=== PATIENT | male | born 1970 | race Caucasian/White ===

== ENCOUNTER 2020-09-10 17:02 | Day surgery (SDC) | payer OTHER ==
[~2020-09-10 17:02] MED LIST: GLYCOPYRROLATE 1 MG/5 ML VIAL ONE; NEOSTIGMINE METHYLSULFATE 10 MG/10 ML VIAL ONE
[2020-09-10] MEDS ORDERED: NORMAL SALINE 1000 ML 1,000 ML IV ONE (17:33)
[2020-09-10] MEDS ORDERED: ONDANSETRON 4 MG TAB.RAPDIS PO ONE (17:33)
[2020-09-10] MEDS ORDERED: HYDROCODONE/ACETAMINOPHEN 5-325 MG TABLET PO ONE (17:33)
--- NOTE | 2020-09-10 17:42 | ER Document Report ---
ED Medical Screen (RME) - General Stated Complaint: ABDOMINAL PAIN Time Seen by Provider: 09/10/20 17:23 Primary Care Provider: DAYNA HOLCOMB [Primary Care Provider] - Follow up as needed - [facility] Notes: 09/10/20 17:36 49 yr old male presents today with complaints of RLQ abd pain since 1am this morning. was seen by his pcp this afternoon, advised to go to ER for further evaluation of possible appendicitis. reports nausea that occurs intermittently. denies any v/d. reports he has two normal bowel movements. reports he noticed an epigastric lump around 4-5 days ago. reports lump is painless. tried ibu this afternoon without relief. denies any cp, sob. no fevers or chills. I have greeted and performed a rapid initial assessment of this patient. A comprehensive ED assessment and evaluation of the patient, analysis of test r esults and completion of the medical decision making process will be conducted by additional ED providers. PHYSICAL EXAMINATION: GENERAL: Well-appearing, well-nourished and in no acute distress. CV: s1, s2 regular LUNGS: No respiratory distress abd: RLQ abd tenderness on palpation. Doctor's Discharge - Discharge Referrals: DAYNA HOLCOMB [Primary Care Provider] - Follow up as needed
[2020-09-10 18:22] LABS: ABSOLUTE BASOPHILS # (AUTO) 0.1 10^3/uL (0.0-0.2); ABSOLUTE EOSINOPHILS # (AUTO) 0.1 10^3/uL (0.0-0.6); ABSOLUTE MONOCYTES (AUTO) 0.8 10^3/uL (0.1-1.4); APPEARANCE,URINE CLEAR; BASOPHILS % (AUTO) 0.5 % (0-2); BILIRUBIN,URINE NEGATIVE (NEGATIVE); COLOR,URINE YELLOW; EOSINOPHILS % (AUTO) 0.8 % (0-6); GLUCOSE, URINE NEGATIVE (NEGATIVE); HEMATOCRIT 46.1 % (37.9-51.0); HEMOGLOBIN 15.8 g/dL (13.5-17.0); KETONES,URINE TRACE mg/dL (NEGATIVE); LEUKOCYTE ESTERASE,URINE NEGATIVE (NEGATIVE); MEAN CORPUSCULAR HEMOGLOBIN 32.4 pg (27.0-33.4); MEAN CORPUSCULAR HGB CONC 34.3 g/dL (32.0-36.0); MEAN CORPUSCULAR VOLUME 95 fl (80-97); NITRITE,URINE NEGATIVE (NEGATIVE); PLATELET COUNT 219 10^3/uL (150-450); PROTEIN,URINE NEGATIVE (NEGATIVE); RED BLOOD COUNT 4.88 10^6/uL (4.35-5.55); RED CELL DISTRIBUTION WIDTH 12.9 % (11.5-14.0); SEGMENTED NEUTROPHILS % (AUTO) 70.7 % (42-78); TOTAL CELLS COUNTED % (AUTO) 100 %; URINE SPECIFIC GRAVITY 1.025; UROBILINOGEN,URINE NEGATIVE mg/dL (<2.0); WHITE BLOOD COUNT 9.9 10^3/uL (4.0-10.5)
[2020-09-10 18:35] LABS: ALBUMIN 4.3 g/dL (3.5-5.0); ALKALINE PHOSPHATASE 63 U/L (38-126); ANION GAP 11 (5-19); ASPARTATE AMINO TRANSFERASE 24 U/L (17-59); BILIRUBIN,TOTAL 0.9 mg/dL (0.2-1.3); BLOOD UREA NITROGEN 13 mg/dL (7-20); CALCIUM 9.7 mg/dL (8.4-10.2); CARBON DIOXIDE 28 mmol/L (22-30); CHLORIDE 100 mmol/L (98-107); GLUCOSE 129 mg/dL (75-110); POTASSIUM 3.8 mmol/L (3.6-5.0); TOTAL PROTEIN 7.2 g/dL (6.3-8.2)
[2020-09-10] MEDS ORDERED: MORPHINE SULFATE 10 MG/ML INJ IV ONE (19:01)
[2020-09-10] MEDS ORDERED: ONDANSETRON HCL INJ/PF 4 MG/2 ML SDV IV ONE (19:01)
--- NOTE | 2020-09-10 19:48 | ER Document Report ---
ED GI/ - General Chief Complaint: Abdominal Pain Stated Complaint: ABDOMINAL PAIN Time Seen by Provider: 09/10/20 17:23 Mode of Arrival: Ambulatory Information source: Patient Notes: 49-year-old male no previous medical problems presents to the emergency room complaining of sharp or crampy pain that started around his umbilicus around 1 AM. Complains of nausea but denies any vomiting. States he took some ibuprofen with some relief. States he thought it was gas. Had 2 normal bowel movements that he states actually make the pain worse. Denies any trauma or injury. No urinary symptoms. No fevers. States that his primary care physician earlier today and was referred to the emergency room for possible appendicitis. TRAVEL OUTSIDE OF THE [place] IN LAST 30 DAYS: No - Related Data Allergies/Adverse Reactions: No Known Allergies Allergy (Unverified 09/10/20 19:22) Past Medical History - General Information source: Patient - Social History Smoking Status: Never Smoker Frequency of alcohol use: Occasional Drug Abuse: None Family History: Reviewed & Not Pertinent Patient has homicidal ideation: No Review of Systems - Review of Systems Constitutional: No symptoms reported EENT: No symptoms reported Cardiovascular: No symptoms reported Respiratory: No symptoms reported Gastrointestinal: Abdominal pain, Nausea. denies: Diarrhea, Vomiting, Constipation Genitourinary: No symptoms reported Male Genitourinary: No symptoms reported Musculoskeletal: No symptoms reported Skin: No symptoms reported Neurological/Psychological: No symptoms reported -: Yes All other systems reviewed and negative Physical Exam - Vital signs Vitals: Temp Pulse Resp BP Pulse Ox 98.1 F 66 14 132/91 H 97 09/10/20 19:48 09/10/20 19:48 09/10/20 19:48 09/10/20 19:48 09/10/20 19:48 - General General appearance: Appears well, Alert In distress: Mild - HEENT Head: Normocephalic, Atraumatic Eyes: Normal Pupils: PERRL Tympanic membrane: Normal Sinus: Normal Nasal: Normal Pharynx: Normal Neck: Normal - Respiratory Respiratory status: No respiratory distress Chest status: Nontender Breath sounds: Normal Chest palpation: Normal - Cardiovascular Rhythm: Regular Heart sounds: Normal auscultation Murmur: No - Abdominal Inspection: Normal Distension: No distension Bowel sounds: Normal Tenderness: Tender - Tenderness with guarding noted to the right lower quadrant. No rebound. No palpable masses., Guarding. No: Rebound Organomegaly: No organomegaly - Back Back: Normal, Nontender. No: CVA tenderness - Neurological Neuro grossly intact: Yes Cognition: Normal Orientation: AAOx4 Angelo Coma Scale Eye Opening: Spontaneous Angelo Coma Scale Verbal: Oriented Conde Coma Scale Motor: Obeys Commands Conde Coma Scale Total: 15 Speech: Normal Motor strength normal: LUE, RUE, LLE, RLE Sensory: Normal - Skin Skin Temperature: Warm Skin Moisture: Dry Skin Color: Normal Course - Re-evaluation Re-evalutation: 09/10/20 21:39 Patient is resting comfortably mild distress noted. Reviewed all lab and CT findings with the patient. Aware of acute appendicitis. Aware that I have spoken with on-call general surgery who will come see the patient. Patient is agreeable with the plan of care. - Vital Signs Vital signs: Temp Pulse Resp BP Pulse Ox 98.4 F 88 16 122/88 H 96 09/10/20 22:22 09/10/20 22:22 09/10/20 22:22 09/10/20 22:22 09/10/20 22:22 - Laboratory Result Diagrams: 09/10/20 17:57 09/10/20 17:57 Laboratory results interpreted by me: 09/10/20 09/10/20 17:57 17:57 Glucose 129 H Urine Ketones TRACE H - Diagnostic Test Radiology reviewed: Reports reviewed - Consults Dr. Montoya Time consulted: 21:35 Reason for consultation: 09/10/20 21:36 Acute appendicitis Reviewed labs, vital signs with Dr. Montoya. Consulted provider: will come to ER Discharge - Discharge Clinical Impression: Pulmonary nodule seen on imaging study, Hiatal hernia Acute appendicitis Qualifiers: Acute appendicitis type: other Qualified Code(s): K35.890 - Other acute appendicitis without perforation or gangrene Condition: Stable Disposition: ADMITTED OBSERVATION Admitting Provider: Surgicalist
--- NOTE | 2020-09-10 21:22 | RADIOLOGY REPORT (SQ) ---
EXAM DESCRIPTION: CT ABDOMEN PELVIS WITH IV CONTRAST COMPLETED DATE/TME: 09/10/2020 20:46 CLINICAL HISTORY: 49 years, Male, RLQ abd pain since 1am epigastric nodule COMPARISON: None. TECHNIQUE: Contrast-enhanced CT abdomen/pelvis was acquired. Images were obtained after the administration of 100 mL of Omnipaque 350 intravenous contrast. Images stored on PACS. All CT scanners at this facility use dose modulation, iterative reconstruction, and/or weight based dosing when appropriate to reduce radiation dose to as low as reasonably achievable (ALARA). [facility]: Dose Right [facility]: CareDose [facility]: Dose Right [facility]: Teradose 4D [facility]: [email or web address] LIMITATIONS: None. FINDINGS: Limited evaluation of the lower chest reveals parenchymal bands about the right lower lobe, indicating areas of atelectasis or scar. A 6 mm subpleural nodule is noted about the right lower lobe on image 6 of series 3. A few additional 2 to 3 mm solid nodules are noted about both lower lobes as well. Liver is diffusely low in attenuation relative to the spleen. No focal liver lesions are appreciated. Spleen, pancreas, gallbladder, and both adrenal glands appear normal. Subcentimeter hypodense lesion about the upper pole of the right kidney is too small to accurately characterize. Both kidneys otherwise enhance symmetrically. No hydronephrosis or hydroureter. The urinary bladder is collapsed, thus its evaluation is limited. Small and large bowel are normal in caliber. No evidence of bowel obstruction. The appendix is circumferentially thick-walled, dilated, and fluid-filled. It contains an appendicolith. Associated adjacent periappendiceal inflammatory stranding is noted. No extraluminal free air or adjacent drainable fluid collections are identified. Tiny hiatal hernia is evident. Vascular structures opacify with contrast normally. No suspicious lymphadenopathy or drainable fluid collections are appreciated. Bone windows show no destructive osseous lesions. However, there is subtle sclerosis/cystic change about the right pubic body. IMPRESSION: Findings are compatible with acute, uncomplicated appendicitis. Suspect hepatic steatosis. Subtle sclerosis/cystic change about the right pubic body, nonspecific though suspicious for osteitis pubis. Bibasilar pulmonary nodules, the largest of which measures 6 mm in size within the subpleural region of the right lower lobe. Current recommendations suggest follow-up CT chest in 6-12 months to document continued stability. TECHNICAL DOCUMENTATION: Quality ID # 436: Final reports with documentation of one or more dose reduction techniques (e.g., Automated exposure control, adjustment of the mA and/or kV according to patient size, use of iterative reconstruction technique) copyright 2011 [employer]- All Rights Reserved
--- NOTE | 2020-09-10 22:20 | PDOC H&P ---
History of Present Illness Admission Date/PCP: 09/10/20 21:52 KIM CHARLTON MD History of Present Illness: DRAGAN PATEL is a 49 year old male 49-year-old male no previous medical problems presents to the emergency room complaining of sharp or crampy pain that started around his umbilicus around 1 AM. Complains of nausea but denies any vomiting. States he took some ibuprofen with some relief. States he thought it was gas. Had 2 normal bowel movements that he states actually make the pain worse. Denies any trauma or injury. No urinary symptoms. No fevers. States that his primary care physician earlier today and was referred to the emergency room for possible appendicitis Past Medical History Cardiac Medical History: Denies: None, Atrial Fibrillation, Congestive Heart Failure, Coronary Artery Disease, DVT, Myocardial Infarction, Hyperlipidema, Hypertension, Peripheral Vascular Disease, Pulmonary Embolism, Heart Murmur, Other Pulmonary Medical History: Denies: None, Asthma, Bronchitis, Chronic Obstructive Pulmonary Disease (COPD), Intubation, Pneumonia, Respiratory Failure, Sleep Apnea, Tuberculosis, Other EENT Medical History: Denies: None, Cataracts, Eyes, Ears, Nose, Throat, Other Neurological Medical History: Denies: None, Hemorrhagic CVA, Ischemic CVA, Migraine, Multiple Sclerosis, Seizures, Other Endocrine Medical History: Denies: None, Diabetes Mellitus Type 1, Diabetes Mellitus Type 2, Gestational Diabetes, Hyperthyroidism, Hypothyroidism, Obesity, Other Malignancy Medical History: Denies: None, Bone Cancer, Brain Cancer, Breast Cancer, Cervical Cancer, Colorectal Cancer, Leukemia, Liver Cancer, Lung Cancer, Lymphoma, Ovarian Cancer, Pancreatic Cancer, Renal (Kidney) Cancer, Skin Cancer, Other GI Medical History: Denies: None, Cirrhosis, Crohn's Disease, Diverticulitis, Gastroesophageal Reflux Disease, Hepatitis, Hiatal Hernia, Peptic Ulcer Disease, Ulcerative Colitis, Other Musculoskeltal Medical History: Reports: Arthritis Skin Medical History: Denies: None, Eczema, Psoriasis, Other Psychiatric Medical History: Denies: None, Alcohol Dependency, Attention Deficit Hyperactivity Disorder, Bipolar Disorder, Dementia, Depression, General Anxiety Disorder, Personality Disorder, Post Traumatic Stress Disorder, Schizoaffective Disorder, Substance Abuse, Tobacco Dependency, Other Traumatic Medical History: Denies: None, Gunshot Wound, Pneumothorax, Stab Wound, Traumatic Brain Injury, Other Hematology: Denies: None, Anemia, Hemophilia, Sickle Cell Disease, Bleeding Tendencies, Heparin Induced Thrombocytopenia, Neutropenia, Other Infectious Medical History: Denies: None, Clostridium Difficile, Hepatitis B, Hepatitis C, HIV, Methicillin-Resistant Staph Aureus, Vancomycin-Resistant Enterococci, Other Past Surgical History Past Surgical History: Denies: None, Appendectomy, Cardiac Catheterization, Carotid Endarterectomy, Cholecystectomy, Colostomy, Coronary Artery Bypass Graft, Coronary Stent, Gastric Bypass Surgery, Herniorrhaphy, Hip Replacement, Ileostomy, Internal Defibrillator, Knee Replacement, Orthopedic Surgery, Pacemaker, Renal Transplant, Splenectomy, Thyroidectomy, Tonsillectomy, Valve Replacement, Vascular Surgery, Other Social History Smoking Status: Never Smoker Family History Family History: Reviewed & Not Pertinent Parental Family History Reviewed: No Children Family History Reviewed: NA Sibling(s) Family History Reviewed.: NA Medication/Allergy Allergies/Adverse Reactions: No Known Allergies Allergy (Unverified 09/10/20 19:22) Review of Systems Constitutional: PRESENT: fatigue Eyes: ABSENT: as per HPI, visual disturbances, other Ears: ABSENT: as per HPI, hearing changes, other Nose, Mouth, and Throat: ABSENT: as per HPI, headache(s), mouth pain, sore throat, vertigo, other Breasts: ABSENT: as per HPI, other Cardiovascular: ABSENT: as per HPI, chest pain, dyspnea on exertion, edema, orthropnea, palpitations, other Respiratory: ABSENT: as per HPI, cough, dyspnea, hemoptysis, sputum, other Gastrointestinal: ABSENT: as per HPI, abdominal pain, bloating, coffee ground e mesis, constipation, diarrhea, dysphagia, heartburn, hematemesis, hematochezia, melena, nausea, vomiting, other Musculoskeletal: ABSENT: as per HPI, back pain, deformity, joint swelling, muscle weakness, other Integumentary: ABSENT: as per HPI, diaphoresis, erythema, lesions, pruritus, rash, wounds, other Neurological: ABSENT: as per HPI, abnormal gait, abnormal movements, abnormal speech, confusion, convulsions, dizziness, focal weakness, frequent falls, lack of coordination, memory loss, numbness, paresthesias, restless legs, syncope, tingling, tremor(s), vertigo, weakness, other Psychiatric: ABSENT: as per HPI, anxiety, depression, hallucinations, homidical ideation, suicidal ideation, other Endocrine: ABSENT: as per HPI, cold intolerance, flushing, heat intolerance, menstrual abnormalities, polydipsia, polyphagia, polyuria, other Hematologic/Lymphatic: ABSENT: as per HPI, easy bleeding, easy bruising, lymphadenopathy, other Allergic/Immunologic: ABSENT: as per HPI, seasonal rhinorrhea, other Physical Exam Vital Signs: Temp Pulse Resp BP Pulse Ox 98.1 F 66 14 132/91 H 97 09/10/20 19:48 09/10/20 19:48 09/10/20 19:48 09/10/20 19:48 09/10/20 19:48 Intake & Output 09/09/20 09/10/20 09/11/20 06:59 06:59 06:59 Intake Total 1000 Balance 1000 General appearance: PRESENT: no acute distress Head exam: PRESENT: atraumatic Eye exam: PRESENT: EOMI Ear exam: PRESENT: normal external ear exam Mouth exam: PRESENT: moist Neck exam: PRESENT: full ROM Respiratory exam: PRESENT: clear to auscultation gloria Cardiovascular exam: PRESENT: RRR Pulses: PRESENT: normal radial pulses, normal femoral pulses Vascular exam: PRESENT: normal capillary refill Breast: PRESENT: Normal GI/Abdominal exam: PRESENT: tenderness - rlq tenderness, rebound Rectal exam: PRESENT: deferred Extremities exam: PRESENT: full ROM Musculoskeletal exam: PRESENT: full ROM Neurological exam: PRESENT: alert, awake, oriented to person, oriented to place Psychiatric exam: PRESENT: appropriate affect Skin exam: PRESENT: dry Results Laboratory Results: 09/10/20 17:57 09/10/20 17:57 09/10/20 09/10/20 09/10/20 17:57 17:57 17:57 WBC 9.9 RBC 4.88 Hgb 15.8 Hct 46.1 MCV 95 MCH 32.4 MCHC 34.3 RDW 12.9 Plt Count 219 Seg Neutrophils % 70.7 Sodium 138.6 Potassium 3.8 Chloride 100 Carbon Dioxide 28 Anion Gap 11 BUN 13 Creatinine 0.96 Est GFR ( Amer) > 60 Glucose 129 H Calcium 9.7 Total Bilirubin 0.9 AST 24 Alkaline Phosphatase 63 Total Protein 7.2 Albumin 4.3 Lipase 40.4 Urine Color YELLOW Urine Appearance CLEAR Urine pH 5.0 Ur Specific [place] 1.025 Urine Protein NEGATIVE Urine Glucose (UA) NEGATIVE Urine Ketones TRACE H Urine Blood NEGATIVE Urine Nitrite NEGATIVE Ur Leukocyte Esterase NEGATIVE Urine WBC (Auto) 0 Urine RBC (Auto) 0 Impressions: Abdomen/Pelvis CT 09/10/20 17:31 IMPRESSION: Findings are compatible with acute, uncomplicated appendicitis. Suspect hepatic steatosis. Subtle sclerosis/cystic change about the right pubic body, nonspecific though suspicious for osteitis pubis. Bibasilar pulmonary nodules, the largest of which measures 6 mm in size within the subpleural region of the right lower lobe. Current recommendations suggest follow-up CT chest in 6-12 months to document continued stability. TECHNICAL DOCUMENTATION: Quality ID # 436: Final reports with documentation of one or more dose reduction techniques (e.g., Automated exposure control, adjustment of the mA and/or kV according to patient size, use of iterative reconstruction technique) copyright 2011 [employer]- All Rights Reserved Assessment & Plan - Time Anticipated Discharge Disposition: Home, Self Care Anticipated Discharge Timeframe: within 24 hours - Plan Summary Plan Summary: impression- acute appendiciits plan to or for lap appendectomy
[2020-09-10] MEDS ORDERED: BUPIVACAINE INJ/PF LIPOSOME/PF 266 MG/20 ML SDV ONE (22:52)
[2020-09-10] MEDS ORDERED: ONDANSETRON HCL INJ/PF 4 MG/2 ML SDV ONE (23:03)
[2020-09-10] MEDS ORDERED: LIDOCAINE 2% INJ-PF (20 MG/ML) 10 ML AMPUL ONE (23:03)
[2020-09-10] MEDS ORDERED: PROPOFOL INJ 200 MG/20 ML VIAL IV ONE (23:03)
[2020-09-10] MEDS ORDERED: FENTANYL CITRATE INJ/PF 100 MCG/2 ML AMPUL ONE (23:03)
[2020-09-10] MEDS ORDERED: DEXAMETHASONE SOD PHOSPHATE INJ 4 MG/1 ML VIAL ONE (23:03)
[2020-09-10] MEDS ORDERED: MIDAZOLAM 2 MG/2 ML INJ ONE (23:03)
[2020-09-10] MEDS ORDERED: HYDROMORPHONE HCL INJ/PF 2 MG/ML AMPULE ONE (23:03)
[2020-09-10] MEDS ORDERED: METRONIDAZOLE 500 MG/NS RTU 500 MG/100 ML RTUPB IV ONE (23:17)
[2020-09-10] MEDS ORDERED: CEFAZOLIN INJ 1 GM VIAL ONE (23:17)
[2020-09-11] MEDS ORDERED: DIPHENHYDRAMINE HCL 50 MG/ML VIAL IV PRN (00:06)
[2020-09-11] MEDS ORDERED: FENTANYL CITRATE INJ/PF 100 MCG/2 ML AMPUL IV PRN ×3 (00:06)
[2020-09-11] MEDS ORDERED: PROMETHAZINE HCL INJ 25 MG/1 ML VIAL IV PRN ×2 (00:06)
[2020-09-11] MEDS ORDERED: OXYCODONE-ACETAMINOPHEN 5-325 MG TABLET PO PRN ×2 (00:06)
[2020-09-11] MEDS ORDERED: MEPERIDINE HCL/PF INJ 25 MG/1 ML DISP.SYRIN IV PRN (00:06)
[2020-09-11] MEDS ORDERED: MORPHINE SULFATE 10 MG/ML INJ IV PRN (00:06)
--- NOTE | 2020-09-11 00:48 | Operative Report ---
Nonrecallable Operative Report DATE OF SURGERY: 09/11/20 PREOPERATIVE DIAGNOSIS: acute appendicitis POSTOPERATIVE DIAGNOSIS: appendicitis OPERATION: laparoscoic appendectomy SURGEON: ALINA SPARROW ANESTHESIA: GA TISSUE REMOVED OR ALTERED: appendix COMPLICATIONS: none ESTIMATED BLOOD LOSS: 20cc INTRAOPERATIVE FINDINGS: see note PROCEDURE: Patient was brought to the operating awake alert stable condition placed on the operative table supine position induced under general anesthesia intubated. The abdomen was prepped and draped in usual sterile manner for the procedure. A varies needle was placed into the umbilicus and the abdomen was insufflated with 6 L of CO2 gas Umbilical 5 mm incision was made with a 15 blade and a 5 mm port placed in the abdominal cavity intra-abdominal visualization revealed no evidence of Veress needle or trocar injury Direct vision a 12 mm left lower quadrant port was placed and a 5 mm left-sided abdominal port. The appendix was visualized it was acutely inflamed was placed on traction the mesoappendix was divided with 1 firing of the Endo MIMI stapler with a white load and the came across the base of the appendix on the cecum with 1 firing the Endo MIMI stapler with a blue load. The appendix was placed in an Endobag and removed through the left lower quadrant port site the right lower quadrant was then irrigated with normal saline suctioned dry hemostasis noted to be intact the left lower quadrant incision was then closed with 0 Vicryl in the fashion all 3 skin incisions were closed with intracuticular 4-0 Biosyn Steri-Strips completed the procedure. Estimated blood loss was less than 20 cc sponge needle counts correct x2 the patient was awakened in the operating extubated transferred recovery in stable condition no complications
--- NOTE | 2020-09-11 01:00 | Discharge Summary ---
Discharge Summary (SDC) - Discharge Final Diagnosis: acute appendicitis Date of Surgery: 09/11/20 Discharge Date: 09/11/20 Condition: Good Prescriptions: Hydrocodone/Acetaminophen [[place] 10-325 mg Tablet] 1 tab PO Q6HP PRN #15 tablet PRN Reason: Hydrocodone/Acetaminophen [[place] 10-325 mg Tablet] 1 tab PO Q6HP PRN #15 tablet PRN Reason: Referrals: LOCALMD,NO [NO LOCAL MD] - Follow up as needed Discharge Diet: As Tolerated Discharge Activity: Activity As Tolerated Report the Following to Your Physician Immediately: Shortness of Breath, Vomiting, Increase in Pain
[2020-09-11] MEDS ORDERED: OXYCODONE-ACETAMINOPHEN 5-325 MG TABLET ONE (01:06)
[2020-09-11 01:46] VITALS: BP 149/89
== END 2020-09-10 23:07 | disposition home or self-care (01) ==
LOC: ER 17:02 → EH 21:52 → UNDOADMOB 21:52 → OROUT 21:53 → UNDODISOB 23:07 → OROUT 23:07
PROVIDERS: ATTEND Surgery
DX: K35.890 Other acute appendicitis without perforation or gangrene (principal); K44.9 Diaphragmatic hernia without obstruction or gangrene; R91.8 Other nonspecific abnormal finding of lung field; Z20.828 Contact with and (suspected) exposure to other viral communicable diseases
CPT/HCPCS: 99285; 96361; 96374; 96375; 36415; 83690; 85025; 0241U ×4; 80053; 81001; 88304 ×2; 74177; 99140; 00840; 44970; J2250; J0690; J1100; J3010; J3490 ×3; J2270; J2710; J1170; J2405; J7030; J2704; C9290; C9803; 840